=== PATIENT | male | born 1965 ===

== ENCOUNTER → 2017-12-18 | Outpatient (REF) | payer OTHER ==
[2017-12-18 11:20] LABS: PLATELET COUNT, AUTOMATED 256 K/uL (150-450)
== END ==
PROVIDERS: ATTEND Physician Assistant Medical
DX: B35.3 Tinea pedis (principal)
CPT/HCPCS: 82040; 82247; 82310; 82374; 82435; 82565; 82947; 83036; 84075; 84132; 84155; 84295; 84450; 84460; 84520; 85025